=== PATIENT | male | born 1950 | race Caucasian/White ===

== ENCOUNTER 2018-04-07 11:03 | Emergency (ER) | payer MEDICARE, OTHER, SELFPAY ==
[2018-04-07 11:05] VITALS: BP 126/63; PULSE 64; RESP 17; TEMP 36.6; O2SAT 100; BMI 27.0
--- NOTE | 2018-04-07 11:23 | EKG12_ITS ---
Test Reason : GENERALILLNESS Blood Pressure : / mmHG Vent. Rate : 063 BPM Atrial Rate : 063 BPM P-R Int : 180 ms QRS Dur : 102 ms QT Int : 400 ms P-R-T Axes : 015 -21 019 degrees QTc Int : 409 ms Normal sinus rhythm Normal ECG Confirmed by SONIA MONTENEGRO, SACHA ([id number]), makeup editor JAN CAMARILLO ([id number]) on 04/10/2018 3:14:19 PM Referred By: Confirmed By:SACHA SCOTT MD
[2018-04-07 11:26] VITALS: BP 135/84; PULSE 63; RESP 19; O2SAT 98
[2018-04-07] MEDS: 0.9% Normal Saline 1,000 ML 1000 ML IV (11:26)
[2018-04-07 11:38] LABS: Absolute Neutrophil Count 2.3 X10^3/uL (2.0-7.7); Basophil# 0.02 X10^3/uL; Basophil% 0.5 % (0-1); Eosinophil# 0.12 X10^3/uL; Hematocrit 33.2 % (40-54); Hemoglobin 11.8 g/dl (13.0-16.5); Lymphocyte % 32.2 % (19-41); Mean Corp Hgb Conc 35.5 g/gl (32-36); Mean Corpuscular Hgb 31.6 pg (27.0-32.0); Mean Corpuscular Volume 88.8 fL (80-94); Mean Platelet Vol. 9.5 fl (6.2-12.0); Monocyte% 7.4 % (0-10); Neutrophil % 56.9 % (47-70); Platelet Count 159 K/mm3 (150-450); RBC Distribution Width CV 13.1 % (11.6-14.6); RBC Distribution Width SD 42.5 fl (35.1-43.9); Red Blood Count 3.74 M/mm3 (4.6-6.2)
[2018-04-07 11:39] LABS: POSITIVE COUNT NO; POSITIVE DIFFERENTIAL NO; POSITIVE MORPHOLOGY NO
[2018-04-07 11:58] LABS: Anion Gap 7 (5-15); BUN 20 mg/dL (7-18); Calcium,Total 8.6 mg/dL (8.5-10.1); Chloride 98 mmol/L (98-107); Creatinine, Serum 1.33 mg/dL (0.70-1.30); EST Glomerular Filtration Rate 57 mL/min (>60); Est Glom Filt Rate - Afr Amer 69 mL/min (>60); Estimated Creatinine Clearance 61.74 ml/min; Glucose 174 mg/dL (74-106); Potassium 3.8 mmol/L (3.5-5.1); Sodium Level 133 mmol/L (136-145)
[2018-04-07 12:11] VITALS: BP 129/70; BP 135/65; BP 151/72; PULSE 67; PULSE 68; PULSE 69
--- NOTE | 2018-04-07 12:42 | ED.VISSUMM ---
- ER Visit Summary Date of Service: 04/07/18 Chief Complaint: Lightheaded History of Present Illness: The patient is a [address] Argueta. He reports that he had teeth pulled 2 days ago and that since that time he is not been able to eat or drink much. States that approximately an hour ago he had been sitting for 20 minutes and when he stood up he felt very lightheaded. reports that he was diaphoretic and pale. Patient denies any other symptoms. No chest pain, palpitations, shortness of breath, or nausea. States that he walked into the bathroom and been standing for 1-2 minutes went back and sat down in the recliner and his took his blood pressure. She reports that she found it was 64/46 with a heart rate of 64. Patient reports that he continued to not feel well for approximately 30 minutes. However, his symptoms of now resolved. He did not ever pass out. Review of systems: General: No fever, chills, cold sweats. Cardiovascular: No chest pain, palpitations. Respiratory: No cough, shortness of breath, dyspnea on exertion. Gastrointestinal: No abdominal pain, nausea, vomiting, diarrhea, melena, or hematochezia. Genitourinary: No dysuria, frequency, hematuria. Skin: No rash. Neuro: No headache, numbness, weakness. Physical Examination: Vitals: Stable. Afebrile. General: Well-nourished and well-developed. Head: Normocephalic atraumatic. Neck: Supple, no lymphadenopathy. No JVD. Nontender. Cardiovascular: Regular rate and rhythm. No murmurs. Respiratory: No respiratory distress. Clear to auscultation bilaterally. Abdominal: Soft, nontender, nondistended, normal bowel sounds. No guarding, rebound, or peritoneal signs. Back: Nontender. Extremities: Nontender, no edema. Skin: Normal color, no rash. Neurologic: Alert and oriented ?3. Cranial nerves II through XII are intact. Normal strength and sensation. Psych: Normal affect. Test Results: EKG is sinus at 63 with no acute changes. There is no old EKG for comparison. Troponin is negative. CBC is more for white count of 4.0 and hemoglobin of 11.8. Chem-7 is more for sodium 133, glucose 174, BUN of 20, creatinine 1.33. I do not have an old creatinine for comparison. Emergency Department Course and Treatment: Patient had with static vital signs that were negative. He was given a liter of normal saline is resting comfortably and feels much improved. Treatment Plan: A prolonged discussion with the patient that I suspect that this episode today is orthostatic hypotension that it was exacerbated by his dehydration. He feels well and would like to go home. He will be discharged instructions to push fluids. Follow-up with his primary care physician 1-2 days if not improving. Return to the emergency department for any worsening symptoms. Disposition: To home in improved and stable condition. Impression: 1. Dehydration. 2. Near syncope. This note was generated with Scuttled[employer] dictation software. It may contain incorrect words, spelling, and punctuation that were not noted in review of the chart prior to signing ED Disposition - Plan for ED Patient: Disposition: Home or Assisted Living Chief Complaint: Hypotension Instructions: ED Dehydration Referrals: Terry Argueta DO [Primary Care Provider] - 1-2 Days if not improving
[2018-04-07 13:04] VITALS: BP 122/76; PULSE 66; RESP 16; O2SAT 95
== END 2018-04-07 13:04 | disposition home or self-care (01) ==
LOC: ED 11:33
PROVIDERS: Emergency Provider Emergency Medicine; Family Provider Family Medicine; PCP Family Medicine
DX: E86.0 Dehydration (principal); R55 Syncope and collapse; E11.9 Type 2 diabetes mellitus without complications; I10 Essential (primary) hypertension; E78.00 Pure hypercholesterolemia, unspecified; Z79.82 Long term (current) use of aspirin; Z79.84 Long term (current) use of oral hypoglycemic drugs; Z79.899 Other long term (current) drug therapy
CPT/HCPCS: 80048; 84484; 85025; 93005; 96360; 96365; 99285; J7030; A4216

== ENCOUNTER → 2019-05-16 11:00 | Outpatient (CLI) | payer MEDICARE, OTHER, SELFPAY ==
[2018-12-19 11:15] VITALS: BMI 27.7
[2019-05-16 13:01] LABS: PSA,Total- Diagnostic 3.45 ng/mL (0.0-4.0)
== END ==
PROVIDERS: Family Provider Family Medicine; PCP Family Medicine; Referring Provider Urology; Visit Provider Urology
DX: N40.1 Benign prostatic hyperplasia with lower urinary tract symptoms (principal)
CPT/HCPCS: 36415; 84153

== ENCOUNTER → 2020-09-30 14:47 | Outpatient (CLI) | payer MEDICARE, OTHER, SELFPAY ==
[2018-12-19 11:15] VITALS: BMI 27.7
[2020-09-30 15:58] LABS: PSA,Total - Annual Screen 3.93 ng/mL (0.00-4.00)
== END ==
PROVIDERS: PCP Preventive Medicine Occupational Medicine; Referring Provider Urology; Visit Provider Urology
DX: Z12.5 Encounter for screening for malignant neoplasm of prostate (principal)
CPT/HCPCS: 36415; 84153; G0103

== ENCOUNTER → 2021-04-03 14:43 | Outpatient (CLI) | payer MEDICARE, OTHER, SELFPAY ==
--- NOTE | 2021-04-03 14:47 | CT_ITS ---
EXAM: CT HEAD WITHOUT INTRAVENOUS CONTRAST CLINICAL INDICATION: CSF RHINORHEA TECHNIQUE: Multiple axial images were obtained of the head without intravenous contrast. This CT exam was performed using one or more of the following dose reduction techniques: automated exposure control, adjustment of the mA and/or kV according to patient size, and/or use of iterative reconstruction technique. This report was created using [employer] report generation technology. COMPARISON: None. FINDINGS: BRAIN AND EXTRA-AXIAL SPACES: Unremarkable. No intra- or extra-axial hemorrhage. No evidence of acute infarct. No intracranial mass or mass effect. There is preservation of the santos/white matter interface. Posterior fossa structures are unremarkable. Ventricles are appropriate for age. No hydrocephalus. Basal cisterns are patent. BONES/JOINTS: Unremarkable. No discrete lytic or blastic abnormalities. VASCULATURE: There are calcifications around the cavernous carotid arteries. This is consistent for atherosclerotic disease. SINUSES: Right maxillary sinus disease. MASTOID AIR CELLS: Unremarkable. Clear. ORBITS: Visualized globes, extraocular muscles, optic nerves and retrobulbar fat appear unremarkable. OTHER FINDINGS: Radiation CTDIvol 33.[address]/Sinus/Facial Bone IMPRESSION: Right maxillary sinus disease. Electronically Signed: Sean Serrano MD at 16:02 EDT , Service support ,
== END ==
PROVIDERS: PCP Preventive Medicine Occupational Medicine; Referring Provider Otolaryngology; Visit Provider Otolaryngology
DX: J34.89 Other specified disorders of nose and nasal sinuses (principal)
CPT/HCPCS: 70486

== ENCOUNTER → 2021-10-14 | Outpatient (CLI) | payer MEDICARE, OTHER, SELFPAY ==
[2021-10-14 13:16] LABS: PSA,Total - Annual Screen 5.47 ng/mL (0.00-4.00)
== END | disposition home or self-care (01) ==
LOC: LAB 11:31
PROVIDERS: PCP Preventive Medicine Occupational Medicine; Referring Provider Urology; Visit Provider Urology
DX: Z12.5 Encounter for screening for malignant neoplasm of prostate (principal)
CPT/HCPCS: 36415; 84153; G0103

== ENCOUNTER → 2022-10-19 | Outpatient (CLI) | payer MEDICARE, OTHER, SELFPAY ==
[2022-10-19 14:35] LABS: PSA,Total - Annual Screen 4.52 ng/mL (0.00-4.00)
== END | disposition home or self-care (01) ==
LOC: LAB 12:24
PROVIDERS: PCP Preventive Medicine Occupational Medicine; Referring Provider Urology; Visit Provider Urology
DX: Z12.5 Encounter for screening for malignant neoplasm of prostate (principal)
CPT/HCPCS: 36415; 84153; G0103

== ENCOUNTER → 2023-08-10 | Outpatient (CLI) | payer MEDICARE, OTHER, SELFPAY ==
--- NOTE | 2023-08-10 13:56 | ECHOD_ITS ---
Reason For Study: ATRIAL FIBRILLATION Procedure This was a 2D Doppler, Color Flow transthoracic echocardiogram. Exam performed in department. Left Ventricle Normal size and thickness. The left ventricular ejection fraction is 65 %. Unable to assess diastolic dysfunction due to arrhythmia. Right Ventricle Normal right ventricle. Atria There is moderate biatrial dilatation. Mitral Valve Trivial mitral valve insufficiency. Tricuspid Valve Trivial tricuspid valve insufficiency. Unable to estimate RV systolic pressure due to insufficient tricuspid regurgitant envelope. Aortic Valve Trisinus/trileaflet aortic valve. Pulmonic Valve The pulmonic valve is not well visualized. Great Vessels Mildly dilated aortic root. Pericardium/Pleural No pericardial effusion. MMode/2D Measurements & Calculations LVIDd: 4.6 cm IVSd: 1.1 cm LVOT diam: 2.1 cm LVIDs: 3.2 cm LVPWd: 1.1 cm LVOT area: 3.5 cm2 RVDd: 4.3 cm FS: 29.8 % Ao root diam: 3.8 cm LAV(MOD-bp): 86.0 ml LVAd ap4: 29.6 cm2 LAV(MOD-bp) Indexed: 38.4 ml/m2 LVLd ap4: 7.8 cm LAV(MOD-sp2): 85.5 ml EDV(MOD-sp4): 93.7 ml LAV(MOD-sp4): 79.7 ml EDV(sp4-el): 96.0 ml LVAs ap4: 16.0 cm2 LVLs ap4: 6.4 cm ESV(MOD-sp4): 33.6 ml ESV(sp4-el): 33.8 ml EF(MOD-sp4): 64.2 % EF(sp4-el): 64.8 % LVAd ap2: 26.0 cm2 SV(MOD-sp4): 60.1 ml SV(MOD-sp2): 45.6 ml LVLd ap2: 7.9 cm EDV(MOD-sp2): 71.8 ml EDV(sp2-el): 72.9 ml LVAs ap2: 13.8 cm2 LVLs ap2: 6.5 cm ESV(MOD-sp2): 26.3 ml ESV(sp2-el): 24.7 ml EF(MOD-sp2): 63.4 % SV(sp4-el): 62.2 ml LA dimension(2D): 4.7 cm LA A4 area: 25.9 cm2 RA A4 area: 20.6 cm2 TAPSE: 2.3 cm Time Measurements MV dec time: 0.17 sec Doppler Measurements & Calculations MV E max oskar: 87.2 cm/sec Lat Peak E' Oskar: 13.2 cm/sec Med Peak E' Oskar: 10.0 cm/sec E/E' lat: 6.6 E/E' med: 8.7 Ao V2 max: 127.0 cm/sec LV V1 max: 102.4 cm/sec SV(LVOT): 66.0 ml Ao max P.5 mmHg LV V1 max P.2 mmHg Ao V2 mean: 90.1 cm/sec LV V1 mean P.1 mmHg Ao mean P.7 mmHg LV V1 mean: 67.0 cm/sec Ao V2 VTI: 24.9 cm LV V1 VTI: 18.6 cm AV (velocity ratio): 0.75 ADONAY(I,D): 2.7 cm2 ADONAY(V,D): 2.9 cm2 PA V2 max: 105.6 cm/sec PA max PG (full): 2.2 mmHg ECHO/Echo Complete Interpretation Summary The left ventricular ejection fraction is 65 %. Mildly dilated aortic root. Ordering Physician: Clay Hutton Referring Physician: MD Esau Mishra Performed By: Ilene Crawford RDCS
== END | disposition home or self-care (01) ==
LOC: CVS 13:49
PROVIDERS: PCP Preventive Medicine Occupational Medicine; Referring Provider Internal Medicine Cardiovascular Disease; Visit Provider Internal Medicine Cardiovascular Disease
DX: I48.0 Paroxysmal atrial fibrillation (principal)
CPT/HCPCS: 93306

== ENCOUNTER 2023-08-26 10:31 | Day surgery (SDC) | payer MEDICARE, OTHER, SELFPAY ==
--- NOTE | 2023-08-19 12:06 | RAD_ITS ---
STUDY: X-RAY CHEST REASON FOR EXAM: Male, 73 years old. Preprocedural evaluation. TECHNIQUE: Frontal and lateral views of the chest. COMPARISON: None. FINDINGS: Mild hyperinflation. There is no demonstrated pleural abnormality. Mild cardiomegaly. Normal mediastinum and juan. Prominent central pulmonary arteries. Aortic tortuosity with calcification. Thoracic osteopenia with diffuse moderate thoracic spondylosis. Normal visualized ribs, clavicles, and shoulders. No abnormality of the visualized soft tissue structures of the upper abdomen. RAD/Chest PA and Lateral IMPRESSION: Cardiomegaly with hyperinflation and no acute or active cardiopulmonary disease. Electronically Signed: Jack Urena MD at 13:12 EDT ,
[2023-08-19 13:32] LABS: Anion Gap 4 (5-15); BUN 18 mg/dL (7-18); BUN/Creat Ratio 13.5 RATIO (10-20); Calcium,Total 9.6 mg/dL (8.5-10.1); Chloride 102 mmol/L (98-107); Creatinine, Serum 1.33 mg/dL (0.70-1.30); EST Glomerular Filtration Rate 56 mL/min (>60); Est Glom Filt Rate - Afr Amer 68 mL/min (>60); Glucose 152 mg/dL (74-106); Sodium Level 135 mmol/L (136-145)
[2023-08-24 11:48] VITALS: BMI 29.2
--- NOTE | 2023-08-26 12:23 | PRO.PCM_ITS ---
Procedure Report Date of Procedure: 08/26/23 DC cardioversion. Patient with recently diagnosed atrial fibrillation history has been on uni nterrupted anticoagulation. Patient presents the postabsorptive nonsedated state. After informed consent was obtained patient was seen by Dr. Victor of the critical care division. Anterior-posterior pads were applied. 40 mg of intravenous propofol was injected and then 200 J of synchronized biphasic cardioversion energy were applied with prompt reversal to sinus rhythm. Patient tolerated the procedure well. Conclusion: Successful DC cardioversion from atrial fibrillation to sinus rhythm. Follow-up as per office protocol. Patient may be interested in the react A-fib trial.
--- NOTE | 2023-08-26 12:50 | PCM.OP.PRO ---
Procedure Report Date of Procedure: 08/26/23 CONSCIOUS SEDATION REPORT DATE OF SERVICE: August 26, 2023 BRIEF HISTORY OF PRESENT ILLNESS: The patient is a 73-year-old male who presented to [facility] for an elective outpatient cardioversion due to underlying atrial fibrillation. The patient has never previously undergone a cardioversion. He denied any prior anesthetic complications. The patient denied a history of obstructive sleep apnea, COPD or asthma. He is systemically anticoagulated on Eliquis. His last surface echocardiogram demonstrated an ejection fraction of approximately 65%. PHYSICAL EXAMINATION: VITAL SIGNS: Reviewed and were acceptable. GENERAL: The patient is a male, in no apparent distress, speaking in full sentences. HEENT: Normocephalic, atraumatic. Mucous membranes are moist and pink. Good mouth opening noted. Trachea is midline. CHEST: S1, S2 irregularly irregular. No murmurs, rubs or gallops were noted. LUNGS: Clear to auscultation bilaterally without appreciable wheezes, rales or rhonchi. ABDOMEN: Soft, nontender, nondistended. Positive bowel sounds. EXTREMITIES: There is no clubbing, cyanosis or edema. ASA Class: II DESCRIPTION OF PROCEDURE: After confirmation of informed consent, the patient's anesthesia plan was reviewed in detail. Propofol was chosen. Risks and benefits were reviewed and the patient agreed to proceed. At 1220, the patient was given 40 mg of propofol. The patient achieved an appropriate level of sedation and was given a 200 joule synchronized cardioversion by Dr. Encarnacion at the bedside. This was successful in achieving normal sinus rhythm. The patient was monitored until 1234, at which time he reached his baseline mental status and function. The patient tolerated the procedure well. COMPLICATIONS: None ESTIMATED BLOOD LOSS: None RECOMMENDATIONS: Okay to recover in usual fashion. Procedures Pulmonary 9xxxx: [id number] Con Sedation
== END 2023-08-26 13:20 | disposition home or self-care (01) ==
LOC: CLSP 10:31
PROVIDERS: Physician Assistant Medical; PCP Preventive Medicine Occupational Medicine; Referring Provider Internal Medicine Cardiovascular Disease; Visit Provider Internal Medicine Cardiovascular Disease
DX: I48.91 Unspecified atrial fibrillation (principal); E11.9 Type 2 diabetes mellitus without complications; I10 Essential (primary) hypertension; E78.5 Hyperlipidemia, unspecified
CPT/HCPCS: 71046; 80048; 92960; 93005; J7040

== ENCOUNTER → 2023-11-01 | Outpatient (CLI) | payer MEDICARE, OTHER, SELFPAY | END | disposition home or self-care (01) | PROVIDERS: PCP Preventive Medicine Occupational Medicine; Referring Provider Urology; Visit Provider Urology | DX: Z12.5 Encounter for screening for malignant neoplasm of prostate (principal) | CPT/HCPCS: 36415; 84153; G0103 ==

== ENCOUNTER → 2024-11-14 | Outpatient (CLI) | payer MEDICARE, OTHER, SELFPAY ==
[2024-11-14 10:45] LABS: PSA,Total- Diagnostic 4.24 ng/mL (0.00-4.00)
== END | disposition home or self-care (01) ==
LOC: LAB 08:29
PROVIDERS: PCP Student in an Organized Health Care Education/Training Program; Referring Provider Urology; Visit Provider Urology
DX: R97.20 Elevated prostate specific antigen [PSA] (principal)
CPT/HCPCS: 36415; 84153

== ENCOUNTER → 2024-11-23 | Outpatient (CLI) | payer MEDICARE, OTHER, SELFPAY | END | disposition home or self-care (01) | LOC: PSN 08:18 | PROVIDERS: PCP Student in an Organized Health Care Education/Training Program; Referring Provider Nurse Practitioner Gerontology; Visit Provider Nurse Practitioner Gerontology | DX: I48.0 Paroxysmal atrial fibrillation (principal) | CPT/HCPCS: 93225; 93226 ==

== ENCOUNTER 2025-02-19 10:40 | Day surgery (SDC) | payer MEDICARE, OTHER, SELFPAY ==
--- NOTE | 2025-02-14 09:27 | RAD_ITS ---
PROCEDURE: CHEST PA AND LATERAL 02/14/2025 REASON FOR EXAM: PRE-OPERATIVE: [facility] TECHNIQUE: Procedure Code: RADCXR Modality: DX Procedure: CHEST PA AND LATERAL COMPARISON: Chest x-ray of 08/19/2023 RAD/Chest PA and Lateral IMPRESSION: Lungs are at least mildly hyperinflated. No focal infiltrate is seen. No pleural effusion or pneumothorax is noted. The cardiomediastinal silhouette is stable, with a partially calcified aorta no ryan. No evidence of cardiomegaly. Mild thoracic spine degenerative changes are seen, along with extensive DISH. No acute osseous process is seen. No evidence of acute cardiopulmonary disease. Reading Location: [place] [id number]
[2025-02-14 10:46] LABS: Anion Gap 13 (5-15); BUN 24 mg/dL (4-19); BUN/Creat Ratio 16.7 RATIO (10-20); Calcium,Total 9.4 mg/dL (7.6-11.0); Carbon Dioxide 21.4 mmol/L (21.0-32.0); Chloride 102 mmol/L (98-108); Glucose 187 mg/dL (70-99); Potassium 4.4 mmol/L (3.3-5.1)
[2025-02-18 07:47] VITALS: BMI 29.9
--- NOTE | 2025-02-19 12:30 | CARDIOVERS ---
Cardioversion Cardioversion: Patient has a history of piercings atrial fibrillation his last direct-current cardioversion was a year ago. He presented to the office back in November 2024 when his Apple watch told him he had gone back into atrial fibrillation. This was confirmed with outpatient ambulatory monitoring that he was at 100% of the time in atrial fibrillation. He was started on flecainide in addition to his long ongoing Eliquis. The 50 mg dose did not revert him into sinus rhythm and he was increased to 100 mg twice daily of flecainide and he remained in atrial fibrillation. He is therefore scheduled for direct-current cardioversion. Patient comes into the hospital today in the fasting state and presented to the cardiac [employer] recovery unit. ECG documented atrial fibrillation with a controlled ventricular response of 88 bpm. QT interval was normal. Patient underwent conscious sedation by Dr. All Victor receiving a total of 80 mg of Ddiprophan to achieve conscious sedation. After appropriate sedation was achieved a single 200 J synchronized shock was delivered with the pads in anterior posterior position. The patient converted to normal sinus rhythm with a heart rate of 61 bpm. The patient awoke from anesthesia with no obvious neurologic deficits. The patient is scheduled to have an ECG done in 1 week in the [place] [facility] office. He is scheduled to go on a cruise the second week of March which he should be fine to do that regardless of maintenance of sinus rhythm. The patient will be continued on his Eliquis, carvedilol, and flecainide 100 mg twice daily. Procedures Coronary Therapeutic CF Procedures [id number]: [id number] Cardioversion electric ext
--- NOTE | 2025-02-19 12:50 | PRO.PCM_ITS ---
Procedures Pulmonary Pulmonary Procedures /Diagnostic Testin Con Sedation Non-invasive Procedural Procedure Information Date of Procedure: 02/19/25 Description of procedure: CONSCIOUS SEDATION REPORT DATE OF SERVICE: February 19, 2025 BRIEF HISTORY OF PRESENT ILLNESS: The patient is a 75-year-old male who presented to [facility] to undergo an elective outpatient cardioversion due to underlying atrial fibril lation. The patient did undergo a prior cardioversion in August 2023, during which time, the patient required 40 mg of propofol to achieve an appropriate level of sedation. The patient denied any prior anesthetic complications. He denies a history of obstructive sleep apnea, COPD or asthma. The patient is systemically anticoagulated on Eliquis. His last surface echocardiogram demonstrated an ejection fraction of 65%. PHYSICAL EXAMINATION: VITAL SIGNS: Reviewed and were acceptable. GENERAL: The patient is a male, in no apparent distress, speaking in full sentences. HEENT: Normocephalic, atraumatic. Mucous membranes are moist and pink. Good mouth opening noted. Trachea is midline. Good neck mobility. CHEST: S1, S2 irregularly irregular. No murmurs, rubs or gallops were noted. LUNGS: Clear to auscultation bilaterally without appreciable wheezes, rales or rhonchi. ABDOMEN: Soft, nontender, nondistended. Positive bowel sounds. EXTREMITIES: There is no clubbing, cyanosis or edema. ASA Class: II DESCRIPTION OF PROCEDURE: After confirmation of informed consent, the patient's anesthesia plan was reviewed in detail. Propofol was chosen. Risks and benefits were reviewed and the patient agreed to proceed. At 1216, the patient was given his first bolus of propofol. In total, the patient required 80 mg of propofol to achieve an appropriate level of sedation, after which time, he was given a 200 joule synchronized cardioversion by Dr. Hutton at the bedside. This was successful in achieving normal sinus rhythm. The patient was monitored until 1230, at which t pancho he reached his baseline mental status and function. The patient tolerated the procedure well. COMPLICATIONS: None ESTIMATED BLOOD LOSS: None RECOMMENDATIONS: Okay to recover in usual fashion.
== END 2025-02-19 13:20 | disposition home or self-care (01) ==
PROVIDERS: Nurse Practitioner Family; PCP Student in an Organized Health Care Education/Training Program; Referring Provider Internal Medicine Cardiovascular Disease; Visit Provider Internal Medicine Cardiovascular Disease
DX: I48.0 Paroxysmal atrial fibrillation (principal); Z79.01 Long term (current) use of anticoagulants; I10 Essential (primary) hypertension; Z79.84 Long term (current) use of oral hypoglycemic drugs; Z79.899 Other long term (current) drug therapy
CPT/HCPCS: 36415; 71046; 80048; 92960; 93005